=== PATIENT | male | born 1960 | race Caucasian/White ===

== ENCOUNTER 2023-01-25 12:18 | Day surgery (SDC) | payer BC, OTHER ==
[2023-01-25] MEDS: Lactated Ringers 1,000 ML IV SCH (12:34)
[2023-01-25] MEDS ORDERED: Midazolam 1 MG/ML 2 ML SDV ONE (13:56)
[2023-01-25] MEDS ORDERED: fentaNYL 100 MCG/2 ML SDV ONE (13:56)
[2023-01-25] MEDS ORDERED: Propofol 200 MG/20 ML SDV ONE (13:56)
== END 2023-01-25 15:25 | disposition home or self-care (01) ==
LOC: VM.SDS 12:18
PROVIDERS: ATTEND Family Medicine
DX: Z12.11 Encounter for screening for malignant neoplasm of colon (principal); K57.30 Diverticulosis of large intestine without perforation or abscess without bleeding; K63.89 Other specified diseases of intestine; E78.5 Hyperlipidemia, unspecified; R73.01 Impaired fasting glucose; E66.9 Obesity, unspecified; M19.90 Unspecified osteoarthritis, unspecified site; G47.9 Sleep disorder, unspecified; M17.9 Osteoarthritis of knee, unspecified; R09.02 Hypoxemia; Z68.34 Body mass index [BMI] 34.0-34.9, adult; L82.1 Other seborrheic keratosis; Z79.899 Other long term (current) drug therapy; Z86.010 Personal history of colon polyps; Z91.048 Other nonmedicinal substance allergy status
CPT/HCPCS: J2250; J2704; J3010; J7120